=== PATIENT | male | born 1970 | race Caucasian/White ===

== ENCOUNTER 2016-05-25 15:29 | Emergency (ER) | payer BC ==
[~2016-05-25] VITALS: Ht 167.6 cm; Wt 81.2 kg
[2016-05-25 15:42] VITALS: BP 131/81
== END 2016-05-25 19:58 | disposition home or self-care (01) ==
LOC: ER 15:34
DX: S16.1XXA Strain of muscle, fascia and tendon at neck level, initial encounter (principal); R51 Headache; V49.49XA Driver injured in collision with other motor vehicles in traffic accident, initial encounter; Y93.89 Activity, other specified; Y99.8 Other external cause status; Y92.410 Unspecified street and highway as the place of occurrence of the external cause
CPT/HCPCS: 70450; 72125